=== PATIENT | male | born 1985 | race Caucasian/White ===

== ENCOUNTER 2018-06-04 00:59 | Emergency (ER) | payer OTHER ==
[~2018-06-04] VITALS: Ht 180.3 cm; Wt 98.7 kg
[2018-06-04 01:22] LABS: WHITE BLOOD COUNT 8.7 10^3/uL (4.0-10.0)
[2018-06-04 01:23] LABS: HEMATOCRIT 44.3 % (42.0-52.0); MEAN CORPUSCULAR HEMOGLOBIN 28.9 pg (27.0-33.0); MEAN CORPUSCULAR HGB CONC 33.9 g/dl (32.0-36.5); MEAN CORPUSCULAR VOLUME 85.4 fl (80.0-96.0); PLATELET COUNT, AUTOMATED 244 10^3/uL (150-450); RED BLOOD COUNT 5.19 10^6/uL (4.30-6.10)
[2018-06-04] MEDS ORDERED: NS 1,000 ML IV ONE ×3 (01:30→05:45)
[2018-06-04] MEDS ORDERED: HALOPERIDOL 5 MG/ML VIAL (J1630) As Ordered ONE (01:43)
[2018-06-04] MEDS ORDERED: diphenhydrAMINE INJ 50MG/ML VIAL (J1200) As Ordered ONE (01:43)
[2018-06-04] MEDS ORDERED: LORazepam 2 MG/ML VIAL (J2060) As Ordered ONE (01:44)
[2018-06-04] MEDS ORDERED: HALOPERIDOL 5 MG/ML VIAL (J1630) IM ONE (01:45)
[2018-06-04] MEDS ORDERED: LORazepam 2 MG/ML VIAL (J2060) IM ONE (01:45)
[2018-06-04] MEDS ORDERED: diphenhydrAMINE INJ 50MG/ML VIAL (J1200) IM ONE (01:45)
[2018-06-04 02:45] LABS: ACETAMINOPHEN LEVEL < 2.0 UG/ML (10.0-30.0); ALBUMIN 4.3 GM/DL (3.2-5.2); ALT/SGPT 30 U/L (12-78); BILIRUBIN,DIRECT < 0.1 MG/DL (0.0-0.2); BILIRUBIN,TOTAL 0.2 MG/DL (0.2-1.0); BLOOD UREA NITROGEN 15 MG/DL (7-18); CARBON DIOXIDE LEVEL 23 MEQ/L (21-32); CHLORIDE LEVEL 108 MEQ/L (98-107); CREATININE FOR GFR 1.31 MG/DL (0.70-1.30); ETHYL ALCOHOL (ETHANOL) 0.276 % (0.000-0.010); GLOMERULAR FILTRATION RATE > 60.0 (>60); GLUCOSE, FASTING 173 MG/DL (70-100); POTASSIUM SERUM 3.7 MEQ/L (3.5-5.1); SALICYLATE LEVEL < 1.7 MG/DL (5.0-30.0); SODIUM LEVEL 142 MEQ/L (136-145); TOTAL PROTEIN 7.1 GM/DL (6.4-8.2)
[2018-06-04 06:07] LABS: AMPHETAMINES LEVEL URINE NEGATIVE (NEGATIVE); BARBITURATES URINE NEGATIVE (NEGATIVE); BENZODIAZEPINES URINE NEGATIVE (NEGATIVE); CANNABINOIDS URINE POSITIVE (NEGATIVE); COCAINE METABOLITE URINE NEGATIVE (NEGATIVE); METHADONE URINE NEGATIVE (NEGATIVE); OPIATES URINE NEGATIVE (NEGATIVE); PHENCYCLIDINE URINE NEGATIVE (NEGATIVE)
--- NOTE | 2018-06-04 07:41 | REP ---
Portable chest, 01:25 a.m., single AP view, the patient upright: There are no comparisons. The lung avery are clear. The cardiac size is normal. The cleo, mediastinum, and skeletal structures are unremarkable. Impression: Negative portable chest. Electronically Signed by Bj Schofield MD 06/04/2018 07:32 A
[2018-06-04 08:16] VITALS: BP 94/55
--- NOTE | 2018-06-04 19:05 | ECGEPIP ---
Stationary ECG Study [facility] - ED Test Date: 2018-06-04 Pat Name: SWAPNIL CHAVIRA Department: Room: - Gender: M Test Technician: RAFAEL : 1985 Requested By: CLARISSE Holt Order Number: [id number] Reading MD: Judy Virgen Measurements Intervals [place] Rate: 109 P: 63 [place]: 179 QRS: 15 QRSD: 114 T: 27 QT: 332 QTc: 448 Interpretive Statements SINUS TACHYCARDIA INCOMPLETE RIGHT BUNDLE BRANCH BLOCK ABNORMAL RHYTHM ECG NO PRIOR FOR COMPARISON Electronically Signed On 06-04-2018 19:05:07 EST by Judy Virgen
== END 2018-06-04 10:40 | disposition home or self-care (01) ==
LOC: M ED 00:59 → EDBD 00:59 → M ED 10:40
DX: F10.129 Alcohol abuse with intoxication, unspecified (principal)
CPT/HCPCS: 71045; 80048; 80076; 80307; 84443; 85027; 93005; 96372; 99285; G0480; J1200; J1630; J2060